=== PATIENT | male | born 1980 | race American Indian/Alaskan Native ===

== ENCOUNTER 2016-10-15 01:07 | Emergency (ER) | payer MEDICARE ==
[2016-10-15 01:29] VITALS: BP 133/88
== END 2016-10-15 07:13 | disposition left against medical advice (07) ==
LOC: ED 01:07
DX: Z00.8 Encounter for other general examination (principal); Z53.21 Procedure and treatment not carried out due to patient leaving prior to being seen by health care provider

== ENCOUNTER 2016-10-26 12:54 | Emergency (ER) | payer MEDICARE | END 2016-10-26 12:55 | disposition left against medical advice (07) | LOC: ED 12:54 | DX: M79.604 Pain in right leg (principal); Z88.8 Allergy status to other drugs, medicaments and biological substances; Z53.21 Procedure and treatment not carried out due to patient leaving prior to being seen by health care provider ==

== ENCOUNTER 2016-11-07 11:50 | Emergency (ER) | payer MEDICARE | END 2016-11-08 05:39 | disposition left against medical advice (07) | LOC: ED 11:50 | DX: R10.9 Unspecified abdominal pain (principal); Z88.8 Allergy status to other drugs, medicaments and biological substances; Z53.21 Procedure and treatment not carried out due to patient leaving prior to being seen by health care provider ==

== ENCOUNTER 2016-12-05 22:45 | Emergency (ER) | payer MEDICARE ==
[2016-12-05 23:04] VITALS: BP 147/80
[2016-12-06] MEDS ORDERED: FLEXERIL PO ONE (03:15)
[2016-12-06] MEDS ORDERED: FLEXERIL ONE (03:15)
--- NOTE | 2016-12-06 03:19 | Emergency Department Report ---
ED Eye Problem HPI - General Chief complaint: Extremity Injury, Lower Stated complaint: LEG PAIN/SOB Time Seen by Provider: 12/06/16 02:11 Source: patient Mode of arrival: Ambulatory Limitations: No Limitations - Related Data Previous Rx's Medication Instructions Recorded Last Taken Type risperiDONE [RisperDAL] 2 mg PO BID #60 tab 05/22/14 02/16/16 Rx QUEtiapine [SEROquel] 400 mg PO BID #60 tablet 05/25/14 02/16/[address] [Depruperto Dr] 500 mg PO Q12H #60 tablet 06/14/14 02/16/16 Rx LORazepam [Ativan] 0.5 mg PO QDAY PRN #5 tablet 07/13/14 02/16/16 Rx hydrOXYzine PAMOATE [Vistaril] 25 mg PO TID #90 capsule 12/10/15 02/16/16 Rx Allergies Allergy/AdvReac Type Severity Reaction Status Date / Time chlorpromazine HCl Allergy Unknown Verified 04/20/15 10:42 [From Thorazine] haloperidol [From Haldol] Allergy Unknown Verified 04/20/15 10:42 haloperidol lactate Allergy Unknown Verified 04/20/15 10:42 [From Haldol] ED Review of Systems ROS: Stated complaint: LEG PAIN/SOB Other details as noted in HPI ED Past Medical Hx - Past Medical History Previous Medical History?: Yes Hx Hypertension: No Hx CVA: No Hx Heart Attack/AMI: No Hx Congestive Heart Failure: No Hx Diabetes: No Hx Deep Vein Thrombosis: No Hx Pulmonary Embolism: No Hx GERD: No Hx Liver Disease: No Hx Renal Disease: No Hx Sickle Cell Disease: No Hx Arthritis: No Hx Headaches / Migraines: No Hx Seizures: Yes Hx Kidney Stones: No Hx Psychiatric Treatment: Yes (Multiple IP stays, bipolar, schitzophrenia) Hx Asthma: No Hx COPD: No Hx Tuberculosis: No Hx Dementia: No Hx HIV: No - Surgical History Past Surgical History?: Yes Hx Coronary Stent: No Hx Open Heart Surgery: No Hx Pacemaker: No Hx Internal Defibrillator: No Hx Cholecystectomy: No Hx Appendectomy: No Hx Breast Surgery: No Additional Surgical History: ? kidney. "Neck trauma". hernia repair - Social History Smoking Status: Never Smoker Substance Use Type: None - Medications Home Medications: Home Medications Medication Instructions Recorded Confirmed Last Taken Type risperiDONE [RisperDAL] 2 mg PO BID #60 tab 05/22/14 02/16/16 02/16/16 Rx QUEtiapine [SEROquel] 400 mg PO BID #60 tablet 05/25/14 02/16/16 02/16/[address] [Depakote Dr] 500 mg PO Q12H #60 tablet 06/14/14 02/16/16 Rx LORazepam [Ativan] 0.5 mg PO QDAY PRN #5 tablet 07/13/14 02/16/16 02/16/16 Rx hydrOXYzine PAMOATE [Vistaril] 25 mg PO TID #90 capsule 12/10/15 02/16/16 Rx ED Physical Exam - General Limitations: No Limitations ED Course Vital Signs 12/05/16 23:01 Temperature 98.0 F Pulse Rate 70 Respiratory 18 Rate Blood Pressure 147/80 O2 Sat by Pulse 100 Oximetry ED Medical Decision Making - Medical Decision Making A/P: Chronic left leg pain 1-short course of Flexeril and naproxen when necessary 2- referral to primary care and outpatient psychiatry 3-patient requesting refill on his Xanax I instructed him to follow up with his outpatient psychiatrist and referred him to outpatient psychiatry centers, information listed in his discharge paperwork 4- Critical care attestation.: If time is entered above; I have spent that time in minutes in the direct care of this critically ill patient, excluding procedure time. ED Disposition Clinical Impression: Chronic leg pain Qualifiers: Laterality: left Qualified Code(s): M79.605 - Pain in left leg; G89.29 - Other chronic pain Disposition: -01 TO HOME OR SELFCARE Is pt being admited?: No Does the pt Need Aspirin: No Condition: Stable Instructions: Arthralgia (ED), Musculoskeletal Pain (ED) Additional Instructions: [email or web address] Referrals: RAULITO ROTHMAN MD [Staff Physician] - 3-5 Days [facility] [Provider Group] - 3-5 Days [facility] [Provider Group] - 3-5 Days Time of Disposition: 03:17
--- NOTE | 2016-12-06 03:21 | Emergency Department Report ---
ED Extremity Problem HPI - General Chief complaint: Extremity Injury, Lower Stated complaint: LEG PAIN/SOB Time Seen by Provider: 12/06/16 02:11 Source: patient Mode of arrival: Ambulatory Limitations: No Limitations - History of Present Illness Initial comments: 36-year-old male with past medical history anxiety, schizophrenia presents with complaint of chronic left sided leg pain and request for refill of his Xanax. On exam patient is awake and alert. Upon initial interview patient is immediately requesting a refill on his Xanax and secondarily states that he suffers from chronic pain in his left leg and is requesting narcotic pain medicine. I asked the patient if he is having any fevers or chills if he is experienced any falls or direct trauma to the leg any changes in skin or rash, patient denies all. Patient is visibly ambulatory in examination room. States that he is in a oswald because he has something to do in the morning and wants to be discharged as soon as possible. The patient was awake alert and oriented to person place and time during interview however exhibited somewhat anxious affect. Patient states that he has not followed up with his primary care doctor and ran out of his Xanax last week. Denies any suicidal or homicidal ideation states that he smokes but denies drug use otherwise. Denies any auditory or visual hallucinations. States that he wants Xanax refill and that he wants to be discharged afterward. He states he occasionally gets muscle spasms in his left leg. Denies any paresthesias. MD Complaint: extremity pain Onset/Timin -: month(s) Location: left, lower extremity History of Same: Yes -: Yes arthralgia Radiation: none Quality: aching Consistency: intermittent Associated Symptoms: denies other symptoms - Related Data Previous Rx's Medication Instructions Recorded Last Taken Type risperiDONE [RisperDAL] 2 mg PO BID #60 tab 05/22/14 02/16/16 Rx QUEtiapine [SEROquel] 400 mg PO BID #60 tablet 05/25/14 02/16/16 Rx Divalproex [Rodolfo Li] 500 mg PO Q12H #60 tablet 06/14/14 02/16/16 Rx LORazepam [Ativan] 0.5 mg PO QDAY PRN #5 tablet 07/13/14 02/16/16 Rx hydrOXYzine PAMOATE [Vistaril] 25 mg PO TID #90 capsule 12/10/15 02/16/16 Rx Cyclobenzaprine [Flexeril] 10 mg PO TID PRN #12 tablet 12/06/16 Unknown Rx Naproxen [Naprosyn TAB] 500 mg PO BID PRN #30 tablet 12/06/16 Unknown Rx Allergies Allergy/AdvReac Type Severity Reaction Status Date / Time chlorpromazine HCl Allergy Unknown Verified 04/20/15 10:42 [From Thorazine] haloperidol [From Haldol] Allergy Unknown Verified 04/20/15 10:42 haloperidol lactate Allergy Unknown Verified 04/20/15 10:42 [From Haldol] ED Review of Systems ROS: Stated complaint: LEG PAIN/SOB Other details as noted in HPI Constitutional: denies: chills, fever Eyes: denies: eye pain, eye discharge, vision change ENT: denies: ear pain, throat pain Respiratory: denies: cough, shortness of breath, wheezing Cardiovascular: denies: chest pain, palpitations Endocrine: no symptoms reported Gastrointestinal: denies: abdominal pain, nausea, diarrhea Genitourinary: denies: urgency, dysuria Musculoskeletal: as per HPI. denies: back pain, joint swelling, arthralgia Skin: denies: rash, lesions Neurological: denies: headache, weakness, paresthesias Psychiatric: anxiety. denies: depression Hematological/Lymphatic: denies: easy bleeding, easy bruising ED Past Medical Hx - Past Medical History Previous Medical History?: Yes Hx Hypertension: No Hx CVA: No Hx Heart Attack/AMI: No Hx Congestive Heart Failure: No Hx Diabetes: No Hx Deep Vein Thrombosis: No Hx Pulmonary Embolism: No Hx GERD: No Hx Liver Disease: No Hx Renal Disease: No Hx Sickle Cell Disease: No Hx Arthritis: No Hx Headaches / Migraines: No Hx Seizures: Yes Hx Kidney Stones: No Hx Psychiatric Treatment: Yes (Multiple IP stays, bipolar, schitzophrenia) Hx Asthma: No Hx COPD: No Hx Tuberculosis: No Hx Dementia: No Hx HIV: No - Surgical History Past Surgical History?: Yes Hx Coronary Stent: No Hx Open Heart Surgery: No Hx Pacemaker: No Hx Internal Defibrillator: No Hx Cholecystectomy: No Hx Appendectomy: No Hx Breast Surgery: No Additional Surgical History: ? kidney. "Neck trauma". hernia repair - Social History Smoking Status: Never Smoker Substance Use Type: None - Medications Home Medications: Home Medications Medication Instructions Recorded Confirmed Last Taken Type risperiDONE [RisperDAL] 2 mg PO BID #60 tab 05/22/14 02/16/16 02/16/16 Rx QUEtiapine [SEROquel] 400 mg PO BID #60 tablet 05/25/14 02/16/16 02/16/[address] [Depakote Dr] 500 mg PO Q12H #60 tablet 06/14/14 02/16/16 Rx LORazepam [Ativan] 0.5 mg PO QDAY PRN #5 tablet 07/13/14 02/16/16 02/16/16 Rx hydrOXYzine PAMOATE [Vistaril] 25 mg PO TID #90 capsule 12/10/15 02/16/16 Rx Cyclobenzaprine [Flexeril] 10 mg PO TID PRN #12 tablet 12/06/16 Unknown Rx Naproxen [Naprosyn TAB] 500 mg PO BID PRN #30 tablet 12/06/16 Unknown Rx ED Physical Exam - General Limitations: No Limitations General appearance: alert, anxious - Head Head exam: Present: atraumatic, normocephalic - Eye Eye exam: Present: normal appearance, PERRL, EOMI - ENT ENT exam: Present: mucous membranes moist - Neck Neck exam: Present: normal inspection, full ROM - Respiratory Respiratory exam: Present: normal lung sounds bilaterally. Absent: respiratory distress - Cardiovascular Cardiovascular Exam: Present: regular rate, normal rhythm. Absent: systolic murmur, diastolic murmur, rubs, gallop - GI/Abdominal GI/Abdominal exam: Present: soft, normal bowel sounds - Rectal Rectal exam: Present: deferred - Extremities Exam Extremities exam: Present: normal inspection - Expanded Lower Extremity Exam Left Hip exam: Present: normal inspection, full ROM Upper Leg exam: Present: normal inspection, full ROM Knee exam: Present: normal inspection, full ROM Lower Leg exam: Present: normal inspection, full ROM Ankle exam: Present: normal inspection, full ROM Foot/Toe exam: Present: normal inspection, full ROM Neuro vascular tendon exam: Present: no vascular compromise (strong dorsalis pedis and posterior tibial pulses on exam left lower extremity. Distal sensation all toes and base of foot intact to light touch) Gait: Positive: observed and normal - Back Exam Back exam: Present: normal inspection - Neurological Exam Neurological exam: Present: alert, oriented X3, CN II-XII intact, normal gait - Psychiatric Psychiatric exam: Present: agitated, anxious - Skin Skin exam: Present: warm, dry, intact, normal color. Absent: rash ED Course Vital Signs 12/05/16 23:01 Temperature 98.0 F Pulse Rate 70 Respiratory 18 Rate Blood Pressure 147/80 O2 Sat by Pulse 100 Oximetry ED Medical Decision Making - Medical Decision Making A/P: Chronic left leg pain 1-patient requesting refill on Xanax, I advised him to follow up with his outpatient psychiatrist and referred him to outpatient psychiatric centers, information included in his discharge paperwork. 2-short course naproxen and Flexeril 3-patient is fully lucid, denies any auditory or visual hallucinations is awake alert and oriented 3 and despite agitated mood is cooperative and able to provide a history. Based on patient's request for narcotic pain medicine I suspect patient may have drug seeking behavior. I provided patient with NSAIDs and a short course of Flexeril to treat his complaint of chronic left leg pain and referred pt to primary care Critical care attestation.: If time is entered above; I have spent that time in minutes in the direct care of this critically ill patient, excluding procedure time. ED Disposition Clinical Impression: Anxiety Chronic leg pain Qualifiers: Laterality: left Qualified Code(s): M79.605 - Pain in left leg Disposition: DC-01 TO HOME OR SELFCARE Is pt being admited?: No Does the pt Need Aspirin: No Condition: Stable Instructions: Musculoskeletal Pain (ED), Arthralgia (ED) Additional Instructions: [email or web address] Prescriptions: Cyclobenzaprine [Flexeril] 10 mg PO TID PRN #12 tablet PRN Reason: Muscle Spasm Naproxen [Naprosyn TAB] 500 mg PO BID PRN #30 tablet PRN Reason: Pain Referrals: [facility] [Provider Group] - 3-5 Days [facility] [Provider Group] - 3-5 Days RAULITO ROTHMAN MD [Staff Physician] - 3-5 Days Forms: Work/School Release Form(ED) Time of Disposition: 03:21
== END 2016-12-06 03:22 | disposition home or self-care (01) ==
LOC: ED 22:45
DX: F41.9 Anxiety disorder, unspecified (principal); M79.605 Pain in left leg; G89.29 Other chronic pain; F31.9 Bipolar disorder, unspecified; F20.9 Schizophrenia, unspecified; Z88.8 Allergy status to other drugs, medicaments and biological substances
CPT/HCPCS: 99283

== ENCOUNTER 2016-12-26 12:40 | Emergency (ER) | payer MEDICARE | END 2016-12-26 13:10 | disposition left against medical advice (07) | LOC: ED 12:40 | DX: Z00.8 Encounter for other general examination (principal); Z88.8 Allergy status to other drugs, medicaments and biological substances; Z53.21 Procedure and treatment not carried out due to patient leaving prior to being seen by health care provider ==

== ENCOUNTER 2017-01-13 00:32 | Emergency (ER) | payer MEDICARE ==
[2017-01-13 00:45] VITALS: BP 145/103
[2017-01-13 01:22] LABS: Basophils % (Auto) 0.7 % (0.0-1.8); Eosinophils % (Auto) 0.5 % (0.0-4.3); Hemoglobin 14.7 gm/dl (11.8-15.2); Mean Corpuscular HGB Conc 33 % (32-34); Mean Corpuscular Hemoglobin 30 pg (28-32); Mean Corpuscular Volume 89 fl (84-94); Platelet Count 158 K/mm3 (140-440); Red Blood Count 4.96 M/mm3 (3.65-5.03); Red Cell Distribution Width 14.2 % (13.2-15.2); White Blood Count 6.2 K/mm3 (4.5-11.0)
[2017-01-13 01:40] LABS: Anion Gap 15 mmol/L; BUN/Creatinine Ratio 12.72; Blood Urea Nitrogen 14 mg/dL (9-20); Calcium 9.3 mg/dL (8.4-10.2); Carbon Dioxide 28 mmol/L (22-30); Chloride 101.1 mmol/L (98-107); Glucose 99 mg/dL (75-100); Potassium 4.5 mmol/L (3.6-5.0); Sodium 140 mmol/L (137-145)
[2017-01-13 02:12] LABS: Urine Drugs of Abuse Note Disclamer
[2017-01-13 02:25] LABS: Bilirubin,Urine NEG (Negative); Blood,Urine NEG (Negative); Ketones,Urine NEG (Negative); Leukocyte Esterase,Urine NEG (Negative); Mucus,Urine FEW /HPF; Nitrite,Urine NEG (Negative); Protein,Urine <15 mg/dL mg/dL (Negative); Urobilinogen,Urine < 2.0 mg/dL (<2.0)
== END 2017-01-13 04:02 | disposition left against medical advice (07) ==
LOC: ED 00:32
DX: M79.1 Myalgia (principal); Z53.21 Procedure and treatment not carried out due to patient leaving prior to being seen by health care provider
CPT/HCPCS: 36415; 80048; 80307; 81001; 85025; G0480; 80320

== ENCOUNTER 2017-02-07 22:45 | Emergency (ER) | payer MEDICARE ==
[2017-02-07] MEDS ORDERED: ATIVAN IM PRN (23:01)
[2017-02-07] MEDS ORDERED: TYLENOL PO ONE (23:01)
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
[2017-02-07 23:04] VITALS: BP 157/106
== END 2017-02-07 23:20 | disposition left against medical advice (07) ==
LOC: ED 22:45
DX: G40.909 Epilepsy, unspecified, not intractable, without status epilepticus (principal); F31.9 Bipolar disorder, unspecified; F20.9 Schizophrenia, unspecified
CPT/HCPCS: 93005; 93010

== ENCOUNTER 2017-03-10 18:43 | Emergency (ER) | payer MEDICARE | END 2017-03-10 19:36 | disposition left against medical advice (07) | LOC: ED 18:43 | DX: Z76.0 Encounter for issue of repeat prescription (principal); Z53.21 Procedure and treatment not carried out due to patient leaving prior to being seen by health care provider ==

== ENCOUNTER 2017-04-05 11:27 | Inpatient (IN) | payer MEDICARE ==
[~2017-04-05 11:27] MED LIST: ATIVAN IV ONE
--- NOTE | 2017-04-05 11:44 | Emergency Department Report ---
HPI - General Chief Complaint: Chest Pain Time Seen by Provider: 04/05/17 11:30 - HPI HPI: Room 21 The patient is a 37-year-old male presenting with a chief complaint of chest pain. Per EMS the patient was observed by bystanders walking into a ball of her shop than lying on the floor and complaining of pain. The patient admits to pain "all over" but states it hurts mostly in his chest. Patient states pain is intermittent for the past 2-3 days associated with nausea vomiting and shortness of breath. Patient denies diaphoresis. EKG was transmitted to the ED by EMS prior to their arrival and this in turn was transmitted and shared/ discussed with Dr. Martinez at 11:04. At that time the code STEMI was canceled/ put on hold Location: All over, chest Duration: Intermittent 2-3 days Quality: Pain Severity: Severe Modifying factors: [see above] Context: [see above] Mode of transportation: [not driving] ED Past Medical Hx - Past Medical History Previous Medical History?: Yes Hx Seizures: Yes Hx Psychiatric Treatment: Yes (Multiple IP stays, bipolar, schitzophrenia) Additional medical history: Coronary artery disease - Surgical History Additional Surgical History: ? kidney. "Neck trauma". hernia repair - Family History Family history: no significant - Social History Smoking Status: Never Smoker Substance Use Type: None - Medications Home Medications: Home Medications Medication Instructions Recorded Confirmed Last Taken Type risperiDONE [RisperDAL] 2 mg PO BID #60 tab 05/22/14 02/16/16 02/16/16 Rx QUEtiapine [SEROquel] 400 mg PO BID #60 tablet 05/25/14 02/16/16 02/16/16 Rx Divalproex [Rodolfo Li] 500 mg PO Q12H #60 tablet 06/14/14 02/16/16 Rx LORazepam [Ativan] 0.5 mg PO QDAY PRN #5 tablet 07/13/14 02/16/16 02/16/16 Rx hydrOXYzine PAMOATE [Vistaril] 25 mg PO TID #90 capsule 12/10/15 02/16/16 Rx Cyclobenzaprine [Flexeril] 10 mg PO TID PRN #12 tablet 12/06/16 Unknown Rx Naproxen [Naprosyn TAB] 500 mg PO BID PRN #30 tablet 12/06/16 Unknown Rx ED Review of Systems ROS: Stated complaint: CHEST PAIN Other details as noted in HPI Constitutional: denies: diaphoresis Respiratory: shortness of breath Cardiovascular: chest pain Gastrointestinal: nausea, vomiting Physical Exam - Physical Exam Vital Signs: Vital Signs 04/05/17 11:29 Temperature 98.0 F Pulse Rate 81 Respiratory 22 Rate Blood Pressure 160/102 O2 Sat by Pulse 100 Oximetry Physical Exam: GENERAL: The patient is well-developed well-nourished male anxious in appearance crying stating he hurts everywhere and states "please don't let me ." HEENT: Normocephalic. Atraumatic. Extraocular motions are intact. Patient has moist mucous membranes. NECK: Supple. Trachea midline CHEST/LUNGS: Clear to auscultation. There is no respiratory distress noted. HEART/CARDIOVASCULAR: Regular. There is no tachycardia. There is no gallop rub or murmur. ABDOMEN: Abdomen is soft, nontender. Patient has normal bowel sounds. There is no abdominal distention. SKIN: There is no rash. There is no edema. There is no diaphoresis. NEURO: The patient is awake, alert, and oriented. The patient is cooperative. The patient has normal speech MUSCULOSKELETAL: There is no evidence of acute injury. ED Course Vital Signs 04/05/17 11:29 Temperature 98.0 F Pulse Rate 81 Respiratory 22 Rate Blood Pressure 160/102 O2 Sat by Pulse 100 Oximetry - Consultations Consultation #1: 04/05/17 11:[address] Martinez. Case discussed. EKG suggests LVH and not STEMI. Recommend "standing down" until further clinical information is gathered 11:29 EKG in ED sent to Dr. Martinez. Does not represent a STEMI 11:40 prior EKG dated 02/07/[address] Martinez 11:[address] Martinez- states EKG does not represent a STEMI. Proceed with standard chest pain workup ED Medical Decision Making - Lab Data Result diagrams: 04/05/17 11:33 04/05/17 11:33 Laboratory Tests 04/05/17 04/05/17 12 11:33 11:33 11:33 WBC 8.2 RBC 5.23 H Hgb 15.1 Hct 45.9 H MCV 88 MCH 29 MCHC 33 RDW 14.2 Plt Count 160 Seg Neutrophils % Order Processing Specialist PT 13.9 INR 1.02 APTT 35.4 D-Dimer 153.34 Sodium 141 Potassium 4.2 Chloride 102.6 Carbon Dioxide 21 L Anion Gap 22 BUN 14 Creatinine 0.9 Estimated GFR > 60 BUN/Creatinine Ratio 16 Glucose 94 Calcium 9.7 Total Creatine Kinase 274 H CK-MB (CK-2) 4.0 CK-MB (CK-2) Rel Index 1.4 Troponin T < 0.010 - EKG Data -: EKG Interpreted by Me EKG shows normal: sinus rhythm Rate: normal - EKG Data When compared to previous EKG there are: changes noted Interpretation: nonspecific ST-T wave lobo - Radiology Data Radiology results: image reviewed (chest x-ray) interpreted by me: Chest x-ray-no focal infiltrates, no pneumothorax - Medical Decision Making I discussed with I discussed with the patient with concern for his chest pain and my recommendation to be admitted to the hospital for further evaluation. I explained to him that it is possible he could be having a "heart attack" despite normal labs so far. Patient verbalized understanding of blisters seems to like to discuss it with his and if she agrees he will stay for admission - Differential Diagnosis ACS, PE, GERD, pericarditis, Critical care attestation.: If time is entered above; I have spent that time in minutes in the direct care of this critically ill patient, excluding procedure time. ED Disposition Clinical Impression: Chest pain, T wave inversion in EKG Disposition: DC-09 OP ADMIT IP TO THIS HOSP Is pt being admited?: Yes Does the pt Need Aspirin: No Condition: Fair Instructions: Chest Pain (ED) Time of Disposition: 12:49 (hospitalist paged (Dr Chapman))
[2017-04-05] MEDS ORDERED: MORPHINE IV ONE (11:50)
[2017-04-05] MEDS ORDERED: ZOFRAN IV ONE (11:50)
[2017-04-05] MEDS ORDERED: PLAVIX PO ONE (11:50)
[2017-04-05] MEDS ORDERED: NITRO-BID 2% TP ONE (11:50)
[2017-04-05 11:55] LABS: Hematocrit 45.9 % (35.5-45.6); Hemoglobin 15.1 gm/dl (11.8-15.2); Mean Corpuscular HGB Conc 33 % (32-34); Mean Corpuscular Hemoglobin 29 pg (28-32); Mean Corpuscular Volume 88 fl (84-94); Platelet Count 160 K/mm3 (140-440); Red Blood Count 5.23 M/mm3 (3.65-5.03); Red Cell Distribution Width 14.2 % (13.2-15.2); White Blood Count 8.2 K/mm3 (4.5-11.0)
[2017-04-05 12:05] LABS: INR 1.02 (0.87-1.13)
[2017-04-05 12:06] LABS: Partial Thromboplastin Time 35.4 Sec. (24.2-36.6)
[2017-04-05 12:28] LABS: Anion Gap 22 mmol/L; BUN/Creatinine Ratio 16; Blood Urea Nitrogen 14 mg/dL (9-20); Calcium 9.7 mg/dL (8.4-10.2); Carbon Dioxide 21 mmol/L (22-30); Chloride 102.6 mmol/L (98-107); Creatine Kinase 274 units/L (55-170); Glucose 94 mg/dL (75-100); Potassium 4.2 mmol/L (3.6-5.0); Sodium 141 mmol/L (137-145)
--- NOTE | 2017-04-05 14:01 | History and Physical Report ---
History of Present Illness Chief complaint: I have pain all over my chest History of present illness: 37 YO Male with Seizure Disorder, Bipolar, Schizophrenia, CAD, presents to ED for evaluation. Pt states that he has experienced pain in his chest for the past 3 days, with worsening symptoms over the past 1 day. Pt states that he was walking and experienced a sudden onset of chest pain and shortness of breath and subsequently laid down on the floor to get relief. Pain is 10/10, substernal , nonradiating, not worsening with exertion, or relieved with rest. Pt denies fever, chills, Palpitations, syncope, BRBPR, Seizure, Vertigo, Trauma, Productive cough, or recent ill contacts. EMS notifiedand patient transported to [facility] for further evaluation. A code STEMI was called in by EMS, However; it was subsequently canceled/put on hold. Pt seen and evaluated in ED and found to have symptoms consistent with ACS. Cardiology team consulted in ED. Past History Past Medical History: CAD, seizures, other (Schizophrenia, Bipolar) Past Surgical History: hernia repair, Other (Neck surgery) Social history: , lives with family. denies: smoking, alcohol abuse, prescription drug abuse, IV drug use Family history: CAD, hypertension Medications and Allergies Allergies Allergy/AdvReac Type Severity Reaction Status Date / Time chlorpromazine HCl Allergy Unknown Verified 04/20/15 10:42 [From Thorazine] haloperidol [From Haldol] Allergy Unknown Verified 04/20/15 10:42 haloperidol lactate Allergy Unknown Verified 04/20/15 10:42 [From Haldol] Home Medications Medication Instructions Recorded Confirmed Last Taken Type risperiDONE [RisperDAL] 2 mg PO BID #60 tab 05/22/14 04/05/17 02/16/16 Rx QUEtiapine [SEROquel] 400 mg PO BID #60 tablet 05/25/14 04/05/17 02/16/16 Rx Divalproex [Rodolfo Li] 500 mg PO Q12H #60 tablet 06/14/14 04/05/17 Rx LORazepam [Ativan] 0.5 mg PO QDAY PRN #5 tablet 07/13/14 04/05/17 02/16/16 Rx hydrOXYzine PAMOATE [Vistaril] 25 mg PO TID #90 capsule 08/04/1404/05/17 Rx Cyclobenzaprine [Flexeril] 10 mg PO TID PRN #12 tablet 12/06/16 04/05/17 Unknown Rx Naproxen [Naprosyn TAB] 500 mg PO BID PRN #30 tablet 12/06/16 04/05/17 Unknown Rx Review of Systems Constitutional: no weight loss, no weight gain, no fever, no chills, no sweats Ears, nose, mouth and throat: no ear pain, no ear discharge, no tinnitis, no decreased hearing, no nose pain, no nasal congestion, no nasal discharge Cardiovascular: chest pain, no orthopnea, no palpitations, no syncope, no lightheadedness, no dyspnea on exertion, no high blood pressure Respiratory: no cough, no cough with sputum, no hemoptysis Gastrointestinal: no abdominal pain, no nausea, no vomiting, no diarrhea Genitourinary Male: no dysuria, no hematuria, no flank pain, no urinary frequency, no urinary hesitancy Rectal: no pain, no incontinence, no bleeding Musculoskeletal: no neck stiffness, no neck pain, no shooting arm pain, no low back pain, no shooting leg pain Integumentary: no rash, no pruritis, no redness, no sores, no wounds, no jaundice Neurological: no head injury, no transient paralysis, no paralysis, no weakness , no parathesias, no numbness, no tingling Psychiatric: no anxiety, no memory loss, no change in sleep habits, no sleep disturbances, no insomnia, no hypersomnia, no change in appetite, no change in libido Endocrine: no cold intolerance, no heat intolerance, no polyphagia, no excessive thirst, no polydipsia, no polyuria, no nocturia Hematologic/Lymphatic: no easy bruising, no easy bleeding Allergic/Immunologic: no urticaria, no allergic rhinitis, no wheezing Exam - Constitutional Vitals: Temp Pulse Resp BP Pulse Ox 99.3 F 80 20 165/102 99 04/05/17 12:42 04/05/17 11:30 04/05/17 12:40 04/05/17 11:30 04/05/17 11:30 General appearance: Present: mild distress, cachectic, disheveled - EENT Eyes: Present: PERRL ENT: hearing intact, clear oral mucosa - Neck Neck: Present: supple, normal ROM - Respiratory Respiratory effort: normal Respiratory: bilateral: CTA - Cardiovascular Heart Sounds: Present: S1 & S2. Absent: rub, click - Extremities Extremities: pulses symmetrical, No edema Peripheral Pulses: within normal limits - Abdominal General gastrointestinal: Present: soft, non-tender, non-distended, normal bowel sounds Male genitourinary: Present: normal - Integumentary Integumentary: Present: clear, warm, dry - Musculoskeletal Musculoskeletal: gait normal, strength equal bilaterally - Psychiatric Psychiatric: appropriate mood/affect, intact judgment & insight - Neurologic Neurologic: CNII-XII intact, moves all extremities Results - Labs CBC & Chem 7: 04/05/17 14:35 04/05/17 14:35 Labs: Abnormal lab results 04/05/17 04/05/17 Range/Units 11:33 11:33 RBC 5.23 H (3.65-5.03) M/mm3 Hct 45.9 H (35.5-45.6) % Carbon Dioxide 21 L (22-30) mmol/L Total Creatine Kinase 274 H (55-170) units/L Assessment and Plan - Patient Problems (1) ACS (acute coronary syndrome) Current Visit: Yes Status: Acute Plan to address problem: Chest Pain protocol: Serial cardiac enzymes, ekg, Telemetry, Echo, Stress Test, Cardiology consult, (2) Seizure disorder Current Visit: Yes Status: Acute Plan to address problem: Valproic Acid level, continue medical management, neuro checks (3) CAD (coronary artery disease) Current Visit: Yes Status: Acute Qualifiers: Associated angina: with stable angina Plan to address problem: Cardiology consulted, antiplatelet therpay, statin therapy, supportive care. (4) Schizophrenia Current Visit: Yes Status: Acute Plan to address problem: Psych consulted, continue medical management. (5) Bipolar 1 disorder Current Visit: Yes Status: Acute Plan to address problem: Psych consulted, continue medical management (6) DVT prophylaxis Current Visit: Yes Status: Acute
[2017-04-05] MEDS ORDERED: PROVENTIL IH PRN (14:06)
[2017-04-05] MEDS ORDERED: DULCOLAX PR PRN (14:06)
[2017-04-05] MEDS ORDERED: TYLENOL PO PRN (14:06)
[2017-04-05] MEDS ORDERED: BABY ASPIRIN PO STA (14:06)
[2017-04-05] MEDS ORDERED: MILK OF MAGNESIA PO PRN (14:06)
[2017-04-05] MEDS ORDERED: SODIUM CHLORIDE FLUSH SYRINGE 10 ML IV PRN (14:06)
[2017-04-05] MEDS ORDERED: ZOFRAN IV PRN (14:06)
[2017-04-05 14:11] LABS: Basophils % (Manual) 0 % (0.0-1.8); Blastocytes % (Manual) 0 %; Eosinophils % (Manual) 0 % (0.0-4.3)
[2017-04-05 14:12] LABS: Diff Status Complete; RBC Morphology Normal
[2017-04-05] MEDS ORDERED: FLEXERIL PO PRN (14:16)
[2017-04-05] MEDS ORDERED: NAPROSYN PO PRN (14:16)
[2017-04-05] MEDS ORDERED: ATIVAN PO PRN (14:16)
--- NOTE | 2017-04-05 14:51 | XRay Report ---
PORTABLE CHEST INDICATION: Chest pain. COMPARISON: 04/12/2011 FINDINGS: Portable, frontal chest radiograph demonstrates normal cardiomediastinal silhouette and clear lungs, given the inspiration. EKG leads. Intact bones. CONCLUSION: No acute disease. Thank you for the opportunity to participate in this patient's care.
[2017-04-05 15:01] LABS: Basophils % (Auto) 0.2 % (0.0-1.8); Eosinophils % (Auto) 0.1 % (0.0-4.3); Hematocrit 43.1 % (35.5-45.6); Hemoglobin 14.2 gm/dl (11.8-15.2); Mean Corpuscular HGB Conc 33 % (32-34); Mean Corpuscular Hemoglobin 29 pg (28-32); Mean Corpuscular Volume 88 fl (84-94); Platelet Count 132 K/mm3 (140-440); Red Blood Count 4.91 M/mm3 (3.65-5.03); Red Cell Distribution Width 14.4 % (13.2-15.2); White Blood Count 6.1 K/mm3 (4.5-11.0)
[2017-04-05 15:13] LABS: Anion Gap 16 mmol/L; BUN/Creatinine Ratio 14; Blood Urea Nitrogen 13 mg/dL (9-20); Calcium 8.9 mg/dL (8.4-10.2); Carbon Dioxide 26 mmol/L (22-30); Chloride 104.4 mmol/L (98-107); Glucose 97 mg/dL (75-100); Potassium 3.5 mmol/L (3.6-5.0); Sodium 143 mmol/L (137-145)
[2017-04-05] MEDS ORDERED: ASPIRIN ONE (16:39)
[2017-04-05] MEDS ORDERED: VISTARIL PO SCH (20:00)
[2017-04-05] MEDS ORDERED: NON-FORMULARY (Risperidone [Risperdal] 2 MG) PO SCH (22:00)
[2017-04-05] MEDS: RisperDAL PO SCH ×2 (23:00→23:46)
[2017-04-06 01:23] VITALS: BP 125/86
== END 2017-04-06 06:05 | disposition left against medical advice (07) | DRG 311 ==
LOC: ED 11:27 → 4A 14:06
PROVIDERS: ADMIT Internal Medicine; ATTEND Internal Medicine
DX: I24.9 Acute ischemic heart disease, unspecified (principal); F31.9 Bipolar disorder, unspecified; G40.909 Epilepsy, unspecified, not intractable, without status epilepticus; F20.9 Schizophrenia, unspecified; I25.10 Atherosclerotic heart disease of native coronary artery without angina pectoris; Z79.899 Other long term (current) drug therapy; Z82.49 Family history of ischemic heart disease and other diseases of the circulatory system
CPT/HCPCS: 36415; 71010; 80048; 80164; 82550; 82553; 84484; 85007; 85025; 85379; 85610; 85730; 93005; 93010; 93306; 96374; 96375; 99285; J2270; J2405

== ENCOUNTER 2017-05-02 11:41 | Emergency (ER) | payer MEDICARE | END 2017-05-02 11:42 | disposition left against medical advice (07) | LOC: ED 11:41 | DX: Z00.8 Encounter for other general examination (principal); Z53.21 Procedure and treatment not carried out due to patient leaving prior to being seen by health care provider ==

== ENCOUNTER 2017-05-16 14:23 | Emergency (ER) | payer MEDICARE | END 2017-05-16 15:15 | disposition left against medical advice (07) | LOC: ED 14:23 | DX: Z53.21 Procedure and treatment not carried out due to patient leaving prior to being seen by health care provider (principal) ==